=== PATIENT | female | born 1950 | race Caucasian/White ===

== ENCOUNTER 2018-06-29 16:21 | Observation (INO) ==
[2018-06-29] MEDS ORDERED: 0.9 % Sodium Chloride 1,000 ML IVC ONE (16:37)
[2018-06-29] MEDS ORDERED: methylPREDNISolone 125 MG/2 ML VIAL IVP ONE (16:37)
[2018-06-29] MEDS ORDERED: Ipratropium/Albuterol Neb 3 ML IH ONE (16:37)
--- NOTE | 2018-06-29 17:11 | Emergency Department Note ---
Disposition Clinical Impression: COPD with acute exacerbation, Bronchitis Dyspnea, unspecified Qualifiers: Dyspnea type: shortness of breath Qualified Code(s): R06.02 - Shortness of breath; R06.00 - Dyspnea, unspecified; R06.01 - Orthopnea Disposition: Admitted As Inpatient Condition: Fair Referrals: Sin Purcell CNP [Primary Care Provider] - Forms: ED Satisfaction Letter Time of Disposition: 18:36 SOB HPI - General Chief Complaint: ED Shortness of Breath/Dyspnea Stated Complaint: SHORTNESS OF BREATH, COUGH Time Seen by Provider: 06/29/18 16:31 Source: patient, EMS Mode of arrival: EMS Limitations: no limitations Nursing Notes Reviewed: Yes Vital Signs Reviewed: Yes - History of Present Illness Pt Subjective Complaint: shortness of breath, cough Onset (ago): week(s) (2 weeks.) Severity: severe Consistency/Duration: constant Improves with: rest Worsens with: exertion Known history of: COPD Associated symptoms: Reports: cough, wheezing, sputum production Treatment prior to arrival: bronchodilator Cough present: Yes Cough Description: Productive Cough Frequency: Persistent Sputum Amount: Moderate Sputum Color: Yellow - Related Data Home Medications Medication Instructions Recorded Confirmed Budesonide/Formoterol 160/4.5 2 puff IH BIDR 04/13/16 06/29/18 [Symbicort 160/4.5] Citalopram [CeleXA] 20 mg PO DAILY 04/13/16 06/29/18 Diltiazem HCl [Diltiazem 12Hr ER] 360 mg PO DAILY 04/13/16 06/29/18 Furosemide [Lasix] 40 mg PO BID 04/13/16 06/29/18 Levothyroxine [Synthroid] 50 mcg PO DAILY 04/13/16 06/29/18 Lisinopril [Zestril] 40 mg PO DAILY 04/13/16 06/29/18 Potassium Chloride [Klor-Con 10 meq PO BID 04/13/16 06/29/18 Sprinkle] Pravastatin Sodium [Pravachol] 40 mg PO DAILY 04/13/16 06/29/18 Metoprolol [Lopressor] 25 mg PO BID 04/23/16 06/29/18 Oxygen 2 l .ROUTE AD 04/24/16 06/29/18 Albuterol Sulfate [Ventolin Hfa] 2 puff IH Q4H PRN 06/29/18 06/29/18 Metformin HCl 500 mg PO BID 06/29/18 06/29/18 Previous Rx's Medication Instructions Recorded Aspirin 81 mg PO DAILY #30 tab.chew 04/26/16 Allergies Allergy/AdvReac Type Severity Reaction Status Date / Time rivaroxaban [From Xarelto] AdvReac Severe See Verified 06/29/18 18:30 Comments All systems ED: reviewed and negative except as stated. Constitutional: Denies: fever, chills ENT ED: Denies: ear pain, throat pain, congestion Cardiovascular: Reports: dyspnea on exertion, other (Patient has chronic lymphedema to her legs but denies any increase in swelling to her legs). Denies: chest pain, palpitations Respiratory: Reports: cough, dyspnea, wheezes Gastrointestinal: Denies: abdominal pain, vomiting, diarrhea Musculoskeletal: Denies: back pain Integumentary: Denies: rash Past Medical History - Past Medical History Attestation: Yes The following information was validated with the patient. Source: patient, old records reviewed, nursing notes reviewed Medical history: Reports: arthritis, atrial fibrillation, COPD, diabetes, hyperlipidemia, hypertension, other Surgical history: Reports: no surgical history Psychiatric history: Reports: anxiety, panic disorder ZOOKEEPER history: Reports: no ZOOKEEPER history - Social History Smoking Status: Current some day smoker Smokeless Tobacco Status: No Alcohol use: Reports: none Drug use: Reports: none Physical Exam - General Limitations: no limitations General appearance: alert, other (Tachypneic and coughing with some audible wheezing) - Head Head exam: atraumatic, normocephalic, normal inspection - Eye Eye exam: Present: normal appearance, PERRL, EOMI. Absent: scleral icterus, conjunctival injection - ENT ENT exam: normal exam, normal oropharynx, mucous membranes moist, TM's normal bilaterally, normal external ear exam - Neck Neck exam: Present: normal inspection, full ROM, trachea midline. Absent: meningismus - Chest Chest inspection: Present: normal inspection, symmetric chest wall rise. Absent: tenderness - Respiratory Respiratory exam: Present: wheezes (Diffuse, bilateral) - Cardiovascular Cardiovascular exam: Present: normal rhythm, tachycardia, normal heart sounds - Abdominal Exam Abdominal exam: Present: soft, Non-Tender, normal bowel sounds - Extremities Exam Extremities exam: Present: other (Chronic edematous changes. No pitting edema) - Neurological Exam Neurological exam: Present: alert, oriented X3 - Psychiatric Psychiatric exam: Present: normal affect, normal mood - Skin Skin exam: Present: warm, dry. Absent: rash Course Course Narrative: Patient presents with shortness of breath and a lot of wheezing. She has cough productive of yellow sputum. Progressively worsening over the past 2 weeks. Most likely a bronchitis or possibly pneumonia which is aggravating her COPD and generating the symptoms. Symptoms sound severe enough that she most likely is toward admission to the hospital. I ordered shortness of breath workup and ordered breathing treatments and steroids. Disposition will be based on diagnostic results and reevaluation. - Reevaluation(s) Reevaluation #1: Patient's chest x-ray shows haziness in the lung markings and there are some effusions there. However clinically she is coughing and producing yellow sputum and does not describe orthopnea and does not feel her legs or any more swollen than usual. Thus I do not think this represents an acute CHF but rather a bronchitis aggravating COPD. Symptoms are enough that she requires hospitalization. Hospitalist has accepted patient. Orders have been placed. Time: 18:35 - Consultations Consultation #1: Dr. Mcgrath, hospitalist - I discussed the case with the hospitalist. He is accepted the patient for admission to the hospital. Time: 18:20 Vital Signs Temperature 97.7 F 06/29/18 16:22 Pulse Rate 113 06/29/18 16:22 Respiratory Rate 22 06/29/18 16:22 Blood Pressure 129/77 06/29/18 16:22 O2 Sat by Pulse Oximetry 94 06/29/18 16:22 Temperature 97.7 F 06/29/18 16:22 Pulse Rate 108 06/29/18 17:46 Respiratory Rate 20 06/29/18 17:46 Blood Pressure 142/78 06/29/18 17:46 O2 Sat by Pulse Oximetry 98 06/29/18 17:46 Oxygen Delivery Oxygen Delivery Nasal Cannula Shortness of Breath/Dyspnea - Medical Records Medical records reviewed: Yes I reviewed the patient's medical records. - Lab Data Lab results reviewed: Yes I reviewed the patient's lab results. Result diagrams: 06/29/18 17:07 06/29/18 17:07 Lab Results 06/29/18 06/29/18 06/29/18 Range/Units 17:07 17:07 17:07 WBC 7.1 (4.3-11.1) K/mcL RBC 3.55 L (3.82-4.97) M/mcL Hgb 11.3 L (11.5-15.4) g/dL Hct 35.8 (35.3-44.9) % MCV 100.8 H (83.0-100.0) fL MCH 31.8 (28.0-33.3) pg MCHC 31.6 (31.6-35.5) g/dL RDW 17.3 H (11.5-14.5) % Plt Count 260 (140-400) K/mcL MPV 10.8 (9.4-12.4) fL Immature Gran % 0.3 (0-4) % Seg Neutrophils % 62.3 % Lymphocytes % 17.0 % Monocytes % 17.7 % Eosinophils % 2.0 % Basophils % 0.7 % Neutrophils # 4.4 (1.6-8.9) K/mcL Lymphocytes # 1.2 (0.6-4.6) K/mcL Monocytes # 1.3 (0.0-1.3) K/mcL Eosinophils # 0.1 (0.0-0.6) K/mcL Basophils # 0.1 (0.0-0.2) K/mcL Sodium 141 (136-145) mEq/L Potassium 4.4 (3.5-5.1) mEq/L Chloride 103 (98-107) mEq/L Carbon Dioxide 32 H (23-29) mEq/L BUN 19 (8-23) mg/dL Creatinine 0.82 (0.60-1.20) mg/dL Est GFR ( Amer) > 60 (> 60) Est GFR (Non-Af Amer) > 60 (> 60) BUN/Creatinine Ratio 23 (6-26) Glucose 134 H (70-105) mg/dL Calculated Osmolality 296 (280-300) Lactic Acid (0.5-2.2) mmol/L Calcium 9.7 (8.6-10.3) mg/dL Troponin I (< 0.04) ng/mL B-Natriuretic Peptide 585 H (Less than 100) pg/mL 06/29/18 06/29/18 Range/Units 17:07 17:07 WBC (4.3-11.1) K/mcL RBC (3.82-4.97) M/mcL Hgb (11.5-15.4) g/dL Hct (35.3-44.9) % MCV (83.0-100.0) fL MCH (28.0-33.3) pg MCHC (31.6-35.5) g/dL RDW (11.5-14.5) % Plt Count (140-400) K/mcL MPV (9.4-12.4) fL Immature Gran % (0-4) % Seg Neutrophils % % Lymphocytes % % Monocytes % % Eosinophils % % Basophils % % Neutrophils # (1.6-8.9) K/mcL Lymphocytes # (0.6-4.6) K/mcL Monocytes # (0.0-1.3) K/mcL Eosinophils # (0.0-0.6) K/mcL Basophils # (0.0-0.2) K/mcL Sodium (136-145) mEq/L Potassium (3.5-5.1) mEq/L Chloride (98-107) mEq/L Carbon Dioxide (23-29) mEq/L BUN (8-23) mg/dL Creatinine (0.60-1.20) mg/dL Est GFR ( Amer) (> 60) Est GFR (Non-Af Amer) (> 60) BUN/Creatinine Ratio (6-26) Glucose (70-105) mg/dL Calculated Osmolality (280-300) Lactic Acid 1.5 (0.5-2.2) mmol/L Calcium (8.6-10.3) mg/dL Troponin I < 0.03 (< 0.04) ng/mL B-Natriuretic Peptide (Less than 100) pg/mL - Radiology Data Radiology results reviewed: Yes I reviewed the patient's radiology results. - EKG Data EKG attestation: Yes I reviewed and interpreted this EKG. EKG results narrative: Twelve-lead EKG performed at 1630 3 PM. Ordered, reviewed and interpreted by ED physician shows atrial flutter at a rate of 99. Right axis deviation. Nonspeci fic intraventricular conduction defect that most likely represents a right bundle branch block. Poor R-wave progression across to precordium. No obvious acute ischemic changes. Most recent EKG was from 2016 and today's EKG has changes compared to that consistent with worsening of right bundle branch block. The atrial flutter was present back in 2016.
[2018-06-29 17:14] LABS: Basophils # 0.1 K/mcL (0.0-0.2); Basophils % 0.7 %; Eosinophils # 0.1 K/mcL (0.0-0.6); Hematocrit 35.8 % (35.3-44.9); Hemoglobin 11.3 g/dL (11.5-15.4); Immature Granulocytes % 0.3 % (0-4); Lymphocytes # 1.2 K/mcL (0.6-4.6); Mean Corpuscular HGB Conc 31.6 g/dL (31.6-35.5); Mean Corpuscular Hemoglobin 31.8 pg (28.0-33.3); Mean Corpuscular Volume 100.8 fL (83.0-100.0); Mean Platelet Volume 10.8 fL (9.4-12.4); Monocytes # 1.3 K/mcL (0.0-1.3); Monocytes % 17.7 %; Neutrophils # 4.4 K/mcL (1.6-8.9); Platelet Count 260 K/mcL (140-400); Red Blood Count 3.55 M/mcL (3.82-4.97); Red Cell Distribution Width 17.3 % (11.5-14.5); Segmented Neutrophils % 62.3 %
[2018-06-29] MEDS ORDERED: Azithromycin 500 MG in D5% in Water 250 ML IVPB ONE (17:25)
[2018-06-29 17:56] LABS: BUN/Creatinine Ratio 23 (6-26); Blood Urea Nitrogen 19 mg/dL (8-23); Calcium 9.7 mg/dL (8.6-10.3); Carbon Dioxide 32 mEq/L (23-29); Chloride 103 mEq/L (98-107); Glucose 134 mg/dL (70-105); Osmolality,Calculated 296 (280-300); Potassium 4.4 mEq/L (3.5-5.1); Sodium 141 mEq/L (136-145); eGFR For Non-African Americans > 60 (> 60)
[2018-06-29] MEDS ORDERED: Naloxone 0.4 MG/ML INJ IVP PRN (20:59)
[2018-06-29] MEDS ORDERED: MethylPREDNISolone 40 MG/ML VIAL IVP ONE (20:59)
[2018-06-29] MEDS: Ipratropium/Albuterol Neb 3 ML IH SCH (21:21)
[2018-06-29] MEDS: Budesonide/Formoterol 160/4.5 1 PUFF INH IH SCH (21:21)
[2018-06-29] MEDS: Furosemide 40 MG TABLET PO SCH (21:44)
[2018-06-29] MEDS: *HR* Metformin 500 MG TABLET PO SCH (21:44)
[2018-06-29] MEDS: 0.9 % Sodium Chloride 1,000 ML IVC SCH (21:44)
[2018-06-30] MEDS: Ipratropium/Albuterol Neb 3 ML IH SCH ×5 (00:29→19:06)
[2018-06-30] MEDS: Levothyroxine 25 MCG TABLET PO SCH (06:38)
[2018-06-30] MEDS: 0.9 % Sodium Chloride 1,000 ML IVC SCH (08:06)
[2018-06-30] MEDS: Aspirin 81 MG TAB.CHEW PO SCH (08:59)
[2018-06-30] MEDS: Lisinopril 20 MG TABLET PO SCH (08:59)
[2018-06-30] MEDS: *HR* Metformin 500 MG TABLET PO SCH ×2 (08:59→17:05)
[2018-06-30] MEDS: Furosemide 40 MG TABLET PO SCH (08:59)
[2018-06-30] MEDS: Diltiazem CD (24hr) 180 MG CAPSULE PO SCH (08:59)
[2018-06-30] MEDS: Budesonide/Formoterol 160/4.5 1 PUFF INH IH SCH ×2 (09:19→21:41)
--- NOTE | 2018-06-30 16:39 | Internal Med History&Physical ---
Date of Encounter: 06/30/18 Time of Encounter: 16:10 Assessment and Plan (1) Heart failure Current visit: Yes Status: Chronic She will be changed from Lasix to Bumex. Lisinopril and Lopressor will be continued. Imdur will be started. Qualifiers: Heart failure type: diastolic Heart failure chronicity: acute on chronic Qualified Code(s): I50.33 - Acute on chronic diastolic (congestive) heart failure (2) Microcytic anemia Current visit: Yes Status: Acute Anemia testing will be done in a.m. (3) DM type 2 (diabetes mellitus, type 2) Current visit: Yes Status: Chronic Check hemoglobin A1c in a.m. Continue metformin and do Accu-Cheks with SSI Qualifiers: Diabetes mellitus skilled nursing insulin use: without termite treater helper use Diabetes mellitus complication status: without complication Qualified Code(s): E11.9 - Type 2 diabetes mellitus without complications (4) Acute exacerbation of chronic obstructive airways disease Current visit: No Status: Acute Continue Symbicort. Zithromax and Rocephin have been started for possible pneumonia. These will be continued with lactobacillus. Duonebs have been ordered. (5) Hypothyroid Current visit: No Status: Chronic Check TSH in a.m. Qualifiers: Hypothyroidism type: unspecified Qualified Code(s): E03.9 - Hypothyroidism, unspecified (6) Atrial fibrillation Current visit: No Status: Chronic Continue aspirin for CVA prophylaxis. Continue Lopressor and Cardizem for rate control. Qualifiers: Atrial fibrillation type: paroxysmal Qualified Code(s): I48.0 - Paroxysmal atrial fibrillation Internal Medicine - H&P: HPI Chief complaint: Dyspnea Admitted From: Emergency Dept Plans for Post Hospital Care: Home History of present illness: Ms. Hoover is a 67 year old female who came to emergency room stating she had increased dyspnea for approximately 2 weeks. She had occasional cough productive of yellow thick mucus. She had one episode of vomiting. She denies fevers chills or diarrhea. She was evaluated in emergency room and felt to have acute bronchitis with possible exacerbation of heart failure. She was admitted to [facility] floor for ongoing care needs. She states she feels slightly improved at present time but still dyspneic. Cardiovascular history is significant for hypertension. She denies [place] DVT or pulmonary embolus. She has chronic atrial fibrillation and is on aspirin since she had significant bleeding with use of Xarelto in the past. She had echocardiogram 03/22/2016 which showed LVEF of 55-60%. The interventricular septum and posterior wall thickness measurements were 1.20 cm each. No significant valvular abnormality was seen. The estimate RVSP was elevated at 49 mmHg. She denies DVT or pulmonary embolus. Respiratory history is significant for having smoked since age 14 up to 2 packs per day. She had PFTs approximately 2013 and was told she had COPD. She wears oxygen at home 23/01. She has been diagnosed with BRADY and wears BiPAP at bedtime. Past Med Surg Social Fam HX - Past Medical History Medical history: arthritis, atrial fibrillation, COPD, diabetes, hyperlipidemia, hypertension, other Additional medical history: CHRONIC EDEMA LOWER EXTREMITIES Psychiatric history: anxiety, panic disorder - Past Surgical History Surgical History: no surgical history - Social History Smoking Status: Current some day smoker Smokeless Tobacco Status: No Alcohol use: none Drug use: none - Family History Brother Family Member Ethnicity: Non- Living Status: Hx Family Cardiac Disorders: Yes Father Adopted: No Living Status: Still Living Hx Family Cardiac Disorders: Yes Mother Living Status: Hx Family Cardiac Disorders: Yes Internal Medicine - H&P: Meds Budesonide/Formoterol 160/4.5 [Symbicort 160/4.5] 2 puff IH BIDR 04/13/16 [History] Citalopram [CeleXA] 20 mg PO DAILY 04/13/16 [History] Diltiazem HCl [Diltiazem 12Hr ER] 360 mg PO DAILY 04/13/16 [History] Furosemide [Lasix] 40 mg PO BID 04/13/16 [History] Levothyroxine [Synthroid] 50 mcg PO DAILY 04/13/16 [History] Lisinopril [Zestril] 40 mg PO DAILY 04/13/16 [History] Potassium Chloride [Klor-Con Sprinkle] 10 meq PO BID 04/13/16 [History] Pravastatin Sodium [Pravachol] 40 mg PO DAILY 04/13/16 [History] Metoprolol [Lopressor] 25 mg PO BID 04/23/16 [History] Oxygen 2 l .ROUTE AD 04/24/16 [History] Aspirin 81 mg PO DAILY #30 tab.chew 04/26/16 [Rx] Albuterol Sulfate [Ventolin Hfa] 2 puff IH Q4H PRN 06/29/18 [History] Metformin HCl 500 mg PO BID 06/29/18 [History] Allergy/AdvReac Type Severity Reaction Status Date / Time rivaroxaban [From Xarelto] AdvReac Severe See Verified 06/29/18 18:30 Comments All Systems PM: A 10-system review of systems was performed and is negative for pertinent findings except as documented above in the HPI. Review of systems: General: Her weight is increased from 133.81 kg at the April 2015 hospitalization to admission weight 156.489 kilograms at present. Cardiovascular: As per history of present illness Respiratory: As per history of present illness GI: She denies disorders of her liver gallbladder or exocrine pancreas : She denies hematuria dysuria or kidney stones Neurologic: She denies large distribution strokes or seizures Endocrine: She has been diagnosed with DM 2 several years ago. She has hyperlipidemia and hypothyroidism Hematology/oncology: She denies blood disorders cancers or anemia Psychiatric: She has anxiety but denies depression or other mental health issues Musk skeletal: She has DJD and had left wrist fracture in the past. She does not have known gout or osteoporosis. - Constitutional Vitals: Temp Pulse Resp BP Pulse Ox 97.8 F 90 18 100/56 93 06/30/18 11:38 06/30/18 11:38 06/30/18 13:00 06/30/18 11:38 06/30/18 13:00 Exam: Gen.: She is a well-developed elderly obese female lying in bed who appears dyspneic at rest HEENT: Head is atraumatic and normocephalic. Eyes: EOMI. There is no scleral icterus. Mouth: Mucosa is moist. Neck: Supple and nontender. There is no thyromegaly or adenopathy noted. Heart: Irregularly irregular without murmurs or gallops Lungs: She has diminished breath sounds diffusely. No wheezes or crackles are heard. Abdomen: She has a very large pannus. She has a umbilical hernia measuring 4-5 cm diameter which is reducible. No masses or guarding are noted. Extremity: She has significant nodularity of the skin of her legs from massive lymphedema. She has 2-3+ pitting edema of the dorsum of the feet and lower legs bilaterally. Dorsalis pedis and posterior tibial pulses are not palpable. Neurologic: Mental status: She is talkative and a good historian. Cranial nerves: Smile is symmetric. Forehead wrinkles bilaterally. Tongue protrudes midline. EOMI. Motor: There is no pronator drift. Cerebellar: Finger to nose is intact bilaterally. Skin: Warm and dry Internal Med - H&P Results - Labs CBC & Chem 7: 06/29/18 17:07 06/29/18 17:07 Labs: Short CBC 06/29/18 Range/Units 17:07 WBC 7.1 (4.3-11.1) K/mcL Hgb 11.3 L (11.5-15.4) g/dL Hct 35.8 (35.3-44.9) % Plt Count 260 (140-400) K/mcL Neutrophils # 4.4 (1.6-8.9) K/mcL BMP 06/29/18 17:07 Sodium 141 Potassium 4.4 Chloride 103 Carbon Dioxide 32 H BUN 19 Creatinine 0.82 Glucose 134 H Calcium 9.7 Cardiac Enzymes 06/29/18 Range/Units 17:07 Troponin I < 0.03 (< 0.04) ng/mL - Impressions ITS Impressions Chest X-Ray 06/29/18 16:36 IMPRESSION: Coarsening of the interstitial markings, likely interstitial pulmonary edema superimposed on chronic interstitial lung disease. Bilateral pleural effusions, right greater than left. D/ / Wale Menchaca MD / Wale Menchaca MD Interpreting Provider: Wale Menchaca MD
[2018-06-30] MEDS ORDERED: Ipratropium/Albuterol Neb 3 ML IH PRN (16:57)
[2018-06-30] MEDS: Bumetanide 1 MG TABLET PO SCH (17:06)
[2018-06-30] MEDS: Isosorbide MONOnitrate (24 HR) 60 MG TAB.ER.24H PO SCH (17:10)
[2018-06-30] MEDS: Azithromycin 500 MG in D5% in Water 250 ML IVPB SCH (18:07)
[2018-06-30] MEDS: Lactobacillus 1 EACH CAP.SPRINK PO SCH (20:52)
[2018-06-30] MEDS: cefTRIAXone 1,000 MG in Water for inj. (sterile) 20 ML 10 ML IVP SCH (20:53)
[2018-07-01] MEDS: Levothyroxine 25 MCG TABLET PO SCH (06:46)
[2018-07-01 06:58] LABS: Thyroid Stimulating Hormone 4.027 mcIU/mL (0.340-5.600)
[2018-07-01] MEDS: Aspirin 81 MG TAB.CHEW PO SCH (08:15)
[2018-07-01] MEDS: Diltiazem CD (24hr) 180 MG CAPSULE PO SCH (08:15)
[2018-07-01] MEDS: *HR* Metformin 500 MG TABLET PO SCH ×2 (08:15→17:27)
[2018-07-01] MEDS: Lactobacillus 1 EACH CAP.SPRINK PO SCH ×2 (08:16→20:18)
[2018-07-01] MEDS: Isosorbide MONOnitrate (24 HR) 60 MG TAB.ER.24H PO SCH (09:38)
[2018-07-01] MEDS: Bumetanide 1 MG TABLET PO SCH ×2 (09:38→17:26)
[2018-07-01] MEDS: Lisinopril 20 MG TABLET PO SCH (09:39)
[2018-07-01] MEDS: Budesonide/Formoterol 160/4.5 1 PUFF INH IH SCH ×2 (10:02→21:57)
[2018-07-01 10:29] LABS: Estimated Average Glucose 140 mg/dl; Hemoglobin A1C 6.5 %
[2018-07-01 10:32] LABS: Folate 12.3 ng/mL (3.0-16.0)
--- NOTE | 2018-07-01 10:44 | Internal Med Progress Note ---
Date of Encounter: 07/01/18 Time of Encounter: 10:35 - Assessment and plan (1) Heart failure Current Visit: Yes Status: Chronic Assessment and plan: July 01. Continue Bumex, lisinopril, Lopressor, and Imdur Qualifiers: Heart failure type: diastolic Heart failure chronicity: acute on chronic Qualified Code(s): I50.33 - Acute on chronic diastolic (congestive) heart failure (2) Macrocytic anemia Current Visit: Yes Status: Acute Assessment and plan: July 01. Anemia testing showed iron 16, transferrin saturation 3%, transferrin 3 and 44, ferritin 17, B12 761, and folate 12.3. Start ferrous sulfate with ascorbic acid in a.m. (3) DM type 2 (diabetes mellitus, type 2) Current Visit: Yes Status: Chronic Assessment and plan: July 01. Hemoglobin A1c satisfactory at 6.5%. Continue metformin and Accu- Cheks with SSI. Qualifiers: Diabetes mellitus penitentiary insulin use: without senior java web application developer use Diabetes mellitus complication status: without complication Qualified Code(s): E11.9 - Type 2 diabetes mellitus without complications (4) Acute exacerbation of chronic obstructive airways disease Current Visit: No Status: Acute Assessment and plan: July 01. Continue Symbicort and antibiotics/probiotics. (5) Hypothyroid Current Visit: No Status: Chronic Assessment and plan: July 01. TSH normal at 4.027. Qualifiers: Hypothyroidism type: unspecified Qualified Code(s): E03.9 - Hypothyroidism, unspecified (6) Atrial fibrillation Current Visit: No Status: Chronic Assessment and plan: July 01. Continue aspirin for CVA prophylaxis and Lopressor with Cardizem for rate control. Qualifiers: Atrial fibrillation type: paroxysmal Qualified Code(s): I48.0 - Paroxysmal atrial fibrillation - Subjective Interval history: July 01. She has no new complaints. She feels slightly improved but is still dyspneic. - Constitutional Vitals: Temp Pulse Resp BP Pulse Ox 98.2 F 65 16 102/54 94 07/01/18 08:17 07/01/18 08:17 07/01/18 10:02 07/01/18 08:17 07/01/18 10:02 Exam: She is resting comfortably in bed but appears slightly dyspneic at rest. Edema shows minimal change in her feet and lower legs. I reviewed her medications and lab results. Internal Medicine: Result - Labs CBC & Chem 7: 06/29/18 17:07 06/29/18 17:07 Consult Discharge Plan - Plan Referrals: Sin Purcell, DIRECTOR OF QUANTITATIVE RESEARCH [Primary Care Provider] - 1 week
[2018-07-01] MEDS: Azithromycin 500 MG in D5% in Water 250 ML IVPB SCH (17:25)
[2018-07-01] MEDS: cefTRIAXone 1,000 MG in Water for inj. (sterile) 20 ML 10 ML IVP SCH (20:16)
[2018-07-02 06:35] LABS: Basophils % 0.2 %; Eosinophils # 0.1 K/mcL (0.0-0.6); Hematocrit 33.4 % (35.3-44.9); Hemoglobin 10.3 g/dL (11.5-15.4); Immature Granulocytes % 0.4 % (0-4); Lymphocytes # 1.8 K/mcL (0.6-4.6); Lymphocytes % 17.9 %; Mean Corpuscular HGB Conc 30.8 g/dL (31.6-35.5); Mean Corpuscular Hemoglobin 31.6 pg (28.0-33.3); Mean Corpuscular Volume 102.5 fL (83.0-100.0); Mean Platelet Volume 10.5 fL (9.4-12.4); Monocytes # 1.3 K/mcL (0.0-1.3); Monocytes % 12.3 %; Neutrophils # 6.9 K/mcL (1.6-8.9); Platelet Count 241 K/mcL (140-400); Red Blood Count 3.26 M/mcL (3.82-4.97); Red Cell Distribution Width 17.3 % (11.5-14.5); Segmented Neutrophils % 68.2 %
[2018-07-02] MEDS: Levothyroxine 25 MCG TABLET PO SCH (06:50)
[2018-07-02 06:55] LABS: BUN/Creatinine Ratio 32 (6-26); Blood Urea Nitrogen 34 mg/dL (8-23); Calcium 9.5 mg/dL (8.6-10.3); Carbon Dioxide 31 mEq/L (23-29); Chloride 104 mEq/L (98-107); Glucose 109 mg/dL (70-105); Magnesium 1.9 mg/dL (1.6-2.6); Osmolality,Calculated 300 (280-300); Potassium 4.4 mEq/L (3.5-5.1); Sodium 141 mEq/L (136-145); eGFR For Non-African Americans 51 (> 60)
[2018-07-02 07:25] VITALS: BP 114/72
[2018-07-02] MEDS: Aspirin 81 MG TAB.CHEW PO SCH (09:13)
[2018-07-02] MEDS: Diltiazem CD (24hr) 180 MG CAPSULE PO SCH (09:13)
[2018-07-02] MEDS: Lactobacillus 1 EACH CAP.SPRINK PO SCH (09:13)
[2018-07-02] MEDS: Isosorbide MONOnitrate (24 HR) 60 MG TAB.ER.24H PO SCH (09:13)
[2018-07-02] MEDS: *HR* Metformin 500 MG TABLET PO SCH (09:14)
[2018-07-02] MEDS: Bumetanide 1 MG TABLET PO SCH (09:14)
[2018-07-02] MEDS: Lisinopril 20 MG TABLET PO SCH (09:18)
[2018-07-02] MEDS: Budesonide/Formoterol 160/4.5 1 PUFF INH IH SCH (09:20)
--- NOTE | 2018-07-02 10:10 | Discharge Summary ---
Orders not resulted at time of discharge: Pending orders 06/29/18 17:07 Culture,Blood [] Stat Date of Encounter: 07/02/18 Time of Encounter: 09:56 - Discharge Diagnosis (1) Heart failure Priority: Primary Status: Chronic Qualifiers: Heart failure type: diastolic Heart failure chronicity: acute on chronic Qualified Code(s): I50.33 - Acute on chronic diastolic (congestive) heart failure (2) Macrocytic anemia Priority: Secondary Status: Acute (3) DM type 2 (diabetes mellitus, type 2) Priority: Secondary Status: Chronic Qualifiers: Diabetes mellitus shelter insulin use: without shelter use Diabetes mellitus complication status: without complication Qualified Code(s): E11.9 - Type 2 diabetes mellitus without complications (4) Acute exacerbation of chronic obstructive airways disease Priority: Secondary Status: Acute (5) Hypothyroid Priority: Secondary Status: Chronic Qualifiers: Hypothyroidism type: unspecified Qualified Code(s): E03.9 - Hypothyroidism, unspecified (6) Atrial fibrillation Priority: Secondary Status: Chronic Qualifiers: Atrial fibrillation type: paroxysmal Qualified Code(s): I48.0 - Paroxysmal atrial fibrillation Hospital course: Ms. Hoover is a 67 year old female who came to emergency room stating she had increased dyspnea for approximately 2 weeks. She had occasional cough productive of yellow thick mucus. She had one episode of vomiting. She denies fevers chills or diarrhea. She was evaluated in emergency room and felt to have acute bronchitis with possible exacerbation of heart failure. She was admitted to [facility] floor for ongoing care needs. Initial orders were written by the emergency room physician. I saw her on June 30 and performed a history and physical. She was started on IV Rocephin and Zithromax in emergency room for possible bronchitis. She remained afebrile. Initial and follow-up CBC showed no leukocytosis or left shift. She will not continue with antibiotics at discharge. She was treated for heart failure continuation of Lisinopril and Lopressor. Lasix was changed to Bumex. Imdur was added. She will be given Lanoxin at discharge also. Her PCP can monitor. Anemia testing showed iron 16, transferrin saturation 3%, transferrin 3 and 44, ferritin 17, B12 761, and folate 12.3. She will be started on ferrous sulfate with vitamin C at discharge. On July 02 she felt improved and stable for discharge home. She will follow with her PCP GERMÁN Purcell within 1 week. - Time Spent with Patient Total time spent providing and/or coordinating discharge services: - Discharge Medications Prescriptions: Ascorbic Acid [C-500] 500 mg PO DAILY #30 tablet Bumetanide [Bumex] 2 mg PO BIDDIURETIC #120 tablet Digoxin [Lanoxin] 0.125 mg PO DAILY #30 tablet Ferrous Sulfate 325 mg PO DAILY #30 tablet Isosorbide MONOnitrate (24 HR) [Imdur] 60 mg PO DAILY #30 tab.er.24h Home Medications: Budesonide/Formoterol 160/4.5 [Symbicort 160/4.5] 2 puff IH BIDR 04/13/16 [History] Citalopram [CeleXA] 20 mg PO DAILY 04/13/16 [History] Diltiazem HCl [Diltiazem 12Hr ER] 360 mg PO DAILY 04/13/16 [History] Levothyroxine [Synthroid] 50 mcg PO DAILY 04/13/16 [History] Lisinopril [Zestril] 40 mg PO DAILY 04/13/16 [History] Potassium Chloride [Klor-Con Sprinkle] 10 meq PO BID 04/13/16 [History] Pravastatin Sodium [Pravachol] 40 mg PO DAILY 04/13/16 [History] Metoprolol [Lopressor] 25 mg PO BID 04/23/16 [History] Oxygen 2 l .ROUTE AD 04/24/16 [History] Aspirin 81 mg PO DAILY #30 tab.chew 04/26/16 [Rx] Albuterol Sulfate [Ventolin Hfa] 2 puff IH Q4H PRN 06/29/18 [History] Metformin HCl 500 mg PO BID 06/29/18 [History] Ascorbic Acid [C-500] 500 mg PO DAILY #30 tablet 07/02/18 [Rx] Bumetanide [Bumex] 2 mg PO BIDDIURETIC #120 tablet 07/02/18 [Rx] Digoxin [Lanoxin] 0.125 mg PO DAILY #30 tablet 07/02/18 [Rx] Ferrous Sulfate 325 mg PO DAILY #30 tablet 07/02/18 [Rx] Isosorbide MONOnitrate (24 HR) [Imdur] 60 mg PO DAILY #30 tab.er.24h 07/02/18 [Rx] Allergies/Adverse Reactions: Allergy/AdvReac Type Severity Reaction Status Date / Time rivaroxaban [From Xarelto] AdvReac Severe See Verified 06/29/18 18:30 Comments Date of admission: 06/29/18 18:58 Primary care physician: Sin Purcell CNP - Constitutional Vitals: Temp Pulse Resp BP Pulse Ox 98.2 F 86 16 114/72 94 07/02/18 07:00 07/02/18 07:00 07/02/18 09:20 07/02/18 07:00 07/02/18 09:20 - Patient Status Disposition: Home, Self-Care Condition: Fair - Discharge Instructions Follow Up With: Sin Purcell, MARK [Primary Care Provider] - 1 week - Diet and Activity Activity: wear oxygen at all times Diet: diabetic diet
--- NOTE | 2018-07-03 15:12 | Electrocardiograph Report ---
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
== END 2018-07-02 12:19 | disposition home or self-care (01) ==
LOC: EMEROOPIK 16:21 → INPPIK 16:21
PROVIDERS: ADMIT Internal Medicine; ATTEND Internal Medicine

== ENCOUNTER 2018-07-19 13:08 | Observation (INO) ==
--- NOTE | 2018-07-19 13:15 | Emergency Department Note ---
Disposition Clinical Impression: COPD (chronic obstructive pulmonary disease), Elevated troponin Disposition: Admitted As Inpatient Condition: Good Referrals: Sin Purcell, KENNEL MANAGER DOG [facility]ACK [Primary Care Provider] - Pediatric SOB HPI - General Chief Complaint: ED Shortness of Breath/Dyspnea Stated Complaint: "I cant breathe" Time Seen by Provider: 07/19/18 13:10 Source: patient Mode of arrival: EMS Limitations: no limitations Nursing Notes Reviewed: Yes Vital Signs Reviewed: Yes - History of Present Illness HPI Narrative: Patient complains of shortness of breath started today. She has been battling off and on since the fourth and has been in the hospital once since then. She is coughing up thick phlegm. Coughing up more phlegm than normal. She is unsure if she lost or gained any weight because she has no scales at home. She denies any fevers or chills chest pain belly pain diarrhea rashes or other complaints. 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: constant Severity: moderate Associated symptoms: Reports: cough Improves with: nothing Worsens with: nothing - Related Data Home Medications Medication Instructions Recorded Confirmed Budesonide/Formoterol 160/4.5 2 puff IH BIDR 04/13/16 06/29/18 [Symbicort 160/4.5] Citalopram [CeleXA] 20 mg PO DAILY 04/13/16 06/29/18 Diltiazem HCl [Diltiazem 12Hr ER] 360 mg PO DAILY 04/13/16 06/29/18 Levothyroxine [Synthroid] 50 mcg PO DAILY 04/13/16 06/29/18 Lisinopril [Zestril] 40 mg PO DAILY 04/13/16 06/29/18 Potassium Chloride [Klor-Con 10 meq PO BID 04/13/16 06/29/18 Sprinkle] Pravastatin Sodium [Pravachol] 40 mg PO DAILY 04/13/16 06/29/18 Metoprolol [Lopressor] 25 mg PO BID 04/23/16 06/29/18 Oxygen 2 l .ROUTE AD 04/24/16 06/29/18 Albuterol Sulfate [Ventolin Hfa] 2 puff IH Q4H PRN 06/29/18 06/29/18 Metformin HCl 500 mg PO BID 06/29/18 06/29/18 Previous Rx's Medication Instructions Recorded Aspirin 81 mg PO DAILY #30 tab.chew 04/26/16 Ascorbic Acid [C-500] 500 mg PO DAILY #30 tablet 07/02/18 Bumetanide [Bumex] 2 mg PO BIDDIURETIC #120 tablet 07/02/18 Digoxin [Lanoxin] 0.125 mg PO DAILY #30 tablet 07/02/18 Ferrous Sulfate 325 mg PO DAILY #30 tablet 07/02/18 Isosorbide MONOnitrate (24 HR) 60 mg PO DAILY #30 tab.er.24h 07/02/18 [Imdur] Allergies Allergy/AdvReac Type Severity Reaction Status Date / Time rivaroxaban [From Xarelto] AdvReac Severe See Verified 06/29/18 18:30 Comments Pediatric Review of Systems All systems ED: reviewed and negative except as stated. Limitations: ROS unobtainable due to patients medical condition Constitutional: Denies: fever, chills, change in activity level Eyes: Denies: eye pain, eye discharge ENT: Denies: ear pain, sore throat Cardiovascular: Denies: chest pain Respiratory: Reports: as per HPI, cough, dyspnea Gastrointestinal: Denies: abdominal pain Genitourinary: Denies: dysuria, polyuria Musculoskeletal: Denies: back pain Integumentary: Denies: rash Neurological: Denies: headache, weakness, numbness Psychiatric: Denies: change in energy level Endocrine: Denies: fatigue Hematological/Lymphatic: Denies: easy bruising Allergic/Immunologic: Denies: facial swelling, urticaria Pediatric Past Medical History - Past Medical History Source: patient Pediatric Exam - General Limitations: no limitations General appearance: well-appearing, well-hydrated, active, well-nourished - Head Head exam: normocephalic, atruamatic, normal inspection - Eye Eye exam: Present: normal appearance, PERRL, EOMI - ENT ENT exam: normal exam, normal oropharynx, mucous membranes moist - Neck Neck exam: Present: normal inspection, full ROM - Chest Chest inspection: Present: normal inspection, symmetric chest wall rise - Respiratory Respiratory exam: Present: prolonged expiratory phase - Cardiovascular Cardiovascular exam: Present: regular rate, normal rhythm - Abdominal Exam Abdominal exam: Present: soft, Non-Tender, normal bowel sounds - Extremities Exam Extremities exam: Present: pedal edema (Chronic edema to lower extremities bilaterally) - Back Exam Back exam: Present: normal inspection - Neurological Exam Neurological exam: Present: alert, oriented X3 - Skin Skin exam: Present: warm, dry, intact - Expanded Skin Exam Type of lesion: Absent: rash Distribution: generalized Medical Decision Making - [facility] Narrative Medical decision making narrative: I reviewed the patient's medication list Patient received 125 mg of Solu-Medrol by squad on the way in as well as an albuterol treatment Case was discussed with Dr. Mcgrath who is graciously accepted admission.
[2018-07-19 13:55] LABS: Hematocrit 38.9 % (35.3-44.9); Hemoglobin 12.2 g/dL (11.5-15.4); Mean Corpuscular HGB Conc 31.4 g/dL (31.6-35.5); Mean Corpuscular Hemoglobin 31.9 pg (28.0-33.3); Mean Corpuscular Volume 101.8 fL (83.0-100.0); Platelet Count 240 K/mcL (140-400); Red Blood Count 3.82 M/mcL (3.82-4.97); Red Cell Distribution Width 18.2 % (11.5-14.5)
[2018-07-19] MEDS ORDERED: Ipratropium/Albuterol Neb 3 ML IH ONE (14:04)
[2018-07-19 14:29] LABS: Alanine Aminotransferase 8 Units/L (7-52); Albumin 3.5 g/dL (3.5-5.7); Albumin/Globulin Ratio 0.9 (1.1-2.2); Alkaline Phosphatase 79 Units/L (34-104); Aspartate Amino Transferase 13 Units/L (13-39); BUN/Creatinine Ratio 18 (6-26); Bilirubin,Total 1.3 mg/dL (0.3-1.0); Blood Urea Nitrogen 14 mg/dL (8-23); Carbon Dioxide 39 mEq/L (23-29); Chloride 93 mEq/L (98-107); Glucose 112 mg/dL (70-105); Osmolality,Calculated 289 (280-300); Potassium 4.1 mEq/L (3.5-5.1); Sodium 139 mEq/L (136-145); Total Protein 7.5 g/dL (6.4-8.9); eGFR For Non-African Americans > 60 (> 60)
[2018-07-19 14:39] LABS: Bilirubin,Urine Negative (Negative); Blood,Urine Trace-lysed (Negative); Clarity,Urine Slightly Cloudy (Clear); Color,Urine Yellow (Yellow); Glucose,Urine (UA) Normal (Normal); Ketones,Urine Negative (Negative); Leukocyte Esterase,Urine Moderate (Negative); Nitrite,Urine Negative (Negative); Protein,Urine Negative (Neg-Trace); Urobilinogen,Urine Normal (Normal)
[2018-07-19 14:40] LABS: Troponin I 0.04 ng/mL (< 0.04)
[2018-07-19 14:53] LABS: Amorphous Sediment,Urine Few (Few); Bacteria,Urine Moderate per hpf (None-Few); Hyaline Casts,Urine Few per lpf (None-Few); Mucus,Urine Many (Few); Squamous Epithelial Cell,Urine Few per lpf (None-Few)
[2018-07-19] MEDS ORDERED: Aspirin 81 MG TAB.CHEW PO STA (14:59)
--- NOTE | 2018-07-19 15:46 | Electrocardiograph Report ---
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
[2018-07-19] MEDS ORDERED: NON-FORMULARY MEDICATION 1 EACH EACH (Oxygen [Oxygen] 2 L) SCH (16:10)
[2018-07-19] MEDS ORDERED: Naloxone 0.4 MG/ML INJ IVP PRN (16:10)
--- NOTE | 2018-07-19 17:34 | Internal Med History&Physical ---
Date of Encounter: 07/19/18 Time of Encounter: 17:10 Assessment and Plan (1) COPD (chronic obstructive pulmonary disease) Current visit: Yes Status: Acute Chest CT will be done to further evaluate. Continue nebulizers and oxygen. Qualifiers: COPD type: unspecified COPD Qualified Code(s): J44.9 - Chronic obstructive pulmonary disease, unspecified (2) Macrocytosis without anemia Current visit: No Status: Chronic Chronic macrocytosis with workup June 2018 unremarkable. (3) Hypertension Current visit: No Status: Chronic Continue Lopressor diltiazem and lisinopril. Qualifiers: Hypertension type: essential hypertension Qualified Code(s): I10 - Essential (primary) hypertension (4) Hypothyroid Current visit: No Status: Chronic TSH was normal 07/01/2018. Continue present dose Synthroid. Qualifiers: Hypothyroidism type: unspecified Qualified Code(s): E03.9 - Hypothyroidism, unspecified (5) Atrial fibrillation Current visit: No Status: Chronic Continue aspirin for CVA prophylaxis and Cardizem with metoprolol and Lanoxin for rate control. Qualifiers: Atrial fibrillation type: paroxysmal Qualified Code(s): I48.0 - Paroxysmal atrial fibrillation (6) DM type 2 (diabetes mellitus, type 2) Current visit: No Status: Chronic Hemoglobin A1c was 6.5% on 07/01/2018. Continue metformin and Accu-Cheks with SSI. 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 (8) Heart failure Current visit: No Status: Chronic Echocardiogram will be done to further evaluate. Qualifiers: Heart failure type: diastolic Heart failure chronicity: acute on chronic Qualified Code(s): I50.33 - Acute on chronic diastolic (congestive) heart failure Internal Medicine - H&P: HPI Chief complaint: Dyspnea Admitted From: Emergency Dept Plans for Post Hospital Care: Home History of present illness: Ms. Hoover is a 67 year old female who came to emergency room complaining of increased dyspnea onset earlier today. There was no chest pain associated. She reports oxygen saturation decreased to 60s percent transferring from bed to bedside commode. She reports she has had a cough productive of yellow-brown sputum for approximately one week. She was evaluated emergency room was felt to have exacerbation of COPD. She was admitted to [facility] floor for ongoing care needs. She was hospitalized [facility] June 30- with diagnosis of heart failure. Cardiovascular history is significant for hypertension. She denies AL DVT or pulmonary embolus. She has chronic atrial fibrillation and is on aspirin since she had significant bleeding with use of Xarelto in the past. She had echocardiogram 03/22/2016 which showed LVEF of 55-60%. The interventricular septum and posterior wall thickness measurements were 1.20 cm each. No significant valvular abnormality was seen. The estimated RVSP was elevated at 49 mmHg. She denies DVT or pulmonary embolus. Respiratory history is significant for having smoked since age 14 up to 2 packs per day. She states she has not smoked since discharge 07/02/2018. She had PFTs approximately 2013 and was told she had COPD. She wears oxygen at home 23/01. She has been diagnosed with BRADY and has been prescribed BiPAP for bedtime use but states she has not worn it in over 2 weeks because of poor tolerance. Past Med Surg Social Fam HX - Past Medical History Medical history: arthritis, atrial fibrillation, CHF, COPD, diabetes, hyperlipidemia, hypertension, other Additional medical history: CHRONIC EDEMA LOWER EXTREMITIES Psychiatric history: anxiety, panic disorder - Past Surgical History Surgical History: no surgical history - Social History Smoking Status: Former smoker Smokeless Tobacco Status: No Alcohol use: none Drug use: none - Family History Brother Family Member Ethnicity: Non- Living Status: Hx Family Cardiac Disorders: Yes Father Adopted: No Living Status: Still Living Hx Family Cardiac Disorders: Yes Mother Living Status: Hx Family Cardiac Disorders: Yes Internal Medicine - H&P: Meds Budesonide/Formoterol 160/4.5 [Symbicort 160/4.5] 2 puff IH BIDR 04/13/16 [History] Citalopram [CeleXA] 20 mg PO DAILY 04/13/16 [History] Diltiazem HCl [Diltiazem 12Hr ER] 360 mg PO DAILY 04/13/16 [History] Levothyroxine [Synthroid] 50 mcg PO DAILY 04/13/16 [History] Lisinopril [Zestril] 40 mg PO DAILY 04/13/16 [History] Potassium Chloride [Klor-Con Sprinkle] 10 meq PO BID 04/13/16 [History] Pravastatin Sodium [Pravachol] 40 mg PO DAILY 04/13/16 [History] Metoprolol [Lopressor] 25 mg PO BID 04/23/16 [History] Oxygen 2 l .ROUTE AD 04/24/16 [History] Aspirin 81 mg PO DAILY #30 tab.chew 04/26/16 [Rx] Albuterol Sulfate [Ventolin Hfa] 2 puff IH Q4H PRN 06/29/18 [History] Metformin HCl 500 mg PO BID 06/29/18 [History] Ascorbic Acid [C-500] 500 mg PO DAILY #30 tablet 07/02/18 [Rx] Bumetanide [Bumex] 2 mg PO BIDDIURETIC #120 tablet 07/02/18 [Rx] Digoxin [Lanoxin] 0.125 mg PO DAILY #30 tablet 07/02/18 [Rx] Ferrous Sulfate 325 mg PO DAILY #30 tablet 07/02/18 [Rx] Isosorbide MONOnitrate (24 HR) [Imdur] 60 mg PO DAILY #30 tab.er.24h 07/02/18 [Rx] Allergy/AdvReac Type Severity Reaction Status Date / Time rivaroxaban [From Xarelto] AdvReac Severe See Verified 06/29/18 18:30 Comments All Systems PM: A 10-system review of systems was performed and is negative for pertinent findings except as documented above in the HPI. Review of systems: Review of systems from her June 2018 [facility] hospitalization were reviewed and revised as below. General: Her weight is increased from 133.81 kg at the April 2015 hospitalization to admission weight 156.489 kilograms at present. Cardiovascular: As per history of present illness Respiratory: As per history of present illness GI: She denies disorders of her liver gallbladder or exocrine pancreas : She denies hematuria dysuria or kidney stones Neurologic: She denies large distribution strokes or seizures Endocrine: She has been diagnosed with DM 2 approximately 2007. She has hyperlipidemia and hypothyroidism Hematology/oncology: She denies blood disorders cancers or anemia Psychiatric: She has anxiety but denies depression or other mental health issues Musk skeletal: She has DJD and had left wrist fracture in the past. She does not have known gout or osteoporosis. - Constitutional Vitals: Temp Pulse Resp BP Pulse Ox 99.8 F H 57 86 133/53 4 07/19/18 13:09 07/19/18 15:26 07/19/18 15:26 07/19/18 15:26 07/19/18 15:26 Exam: Gen.: She is a well-developed morbidly obese female lying in bed who appears in no acute distress. HEENT: Head is atraumatic and normocephalic. Eyes: EOMI. There is no scleral icterus. Nose: She is wearing oxygen mask. Mouth: Mucosa is moist. Neck: Supple and nontender. There is no thyromegaly or adenopathy noted. Heart: Irregularly irregular without murmurs or gallops Lungs: No wheezes or crackles are heard. She has egophony in the right posterior upper lung field. Abdomen: She has a large abdomen. It is nontender to palpation. Extremities: She has severe lymphedema with dermal thickening and nodularity. She has 2+ pitting edema of the dorsum of the feet bilaterally. She has woody edema of her lower legs. Dorsalis pedis and posttibial pulses are not palpable. Neurologic: Mental status: She is talkative and a good historian. Cranial nerves: Smile is symmetric. Forehead wrinkles bilaterally. Tongue protrudes midline. EOMI. Motor: There is no pronator drift. Cerebellar: Finger to nose is intact bilaterally. Skin: Warm and dry Internal Med - H&P Results - Labs CBC & Chem 7: 07/19/18 13:34 07/19/18 13:34 Labs: Short CBC 07/19/18 Range/Units 13:34 WBC 7.7 (4.3-11.1) K/mcL Hgb 12.2 (11.5-15.4) g/dL Hct 38.9 (35.3-44.9) % Plt Count 240 (140-400) K/mcL BMP 07/19/18 13:34 Sodium 139 Potassium 4.1 Chloride 93 L Carbon Dioxide 39 H BUN 14 Creatinine 0.78 Glucose 112 H Calcium 10.0 Cardiac Enzymes 07/19/18 Range/Units 13:34 Troponin I 0.04 H* (< 0.04) ng/mL Liver Function 07/19/18 Range/Units 13:34 Total Bilirubin 1.3 H (0.3-1.0) mg/dL AST 13 (13-39) Units/L ALT 8 (7-52) Units/L Alkaline Phosphatase 79 (34-104) Units/L Albumin 3.5 (3.5-5.7) g/dL Urine 07/19/18 Range/Units 14:34 Urine Color Yellow (Yellow) Urine Clarity Slightly Cloudy A (Clear) Urine pH 5.0 (5.0-8.0) pH Units Ur Specific [place] 1.020 (1.010-1.025) Urine Protein Negative (Neg-Trace) mg/dL Urine Glucose (UA) Normal (Normal) mg/dL - Impressions ITS Impressions Chest X-Ray 07/19/18 13:20 IMPRESSION: 1. No acute cardiopulmonary disease. 2. Chronic interstitial changes due to emphysema. D/ / Alexsander Christopher MD / Alexsander Christopher MD Interpreting Provider: Alexsander Christopher MD
[2018-07-19] MEDS: Bumetanide 1 MG TABLET PO SCH (17:53)
[2018-07-19] MEDS: *HR* Metformin 500 MG TABLET PO SCH (17:54)
[2018-07-19] MEDS ORDERED: Albuterol 2.5 MG/3 ML NEBULIZER IH PRN (18:53)
[2018-07-19] MEDS: Budesonide/Formoterol 160/4.5 1 PUFF INH IH SCH (21:38)
[2018-07-20] MEDS ORDERED: Levothyroxine 25 MCG TABLET PO SCH (06:30)
[2018-07-20] MEDS: Bumetanide 1 MG TABLET PO SCH (07:32)
[2018-07-20 07:33] LABS: Basophils % 0.2 %; Hematocrit 37.4 % (35.3-44.9); Hemoglobin 11.5 g/dL (11.5-15.4); Immature Granulocytes % 0.5 % (0-4); Lymphocytes # 0.5 K/mcL (0.6-4.6); Lymphocytes % 9.2 %; Mean Corpuscular HGB Conc 30.7 g/dL (31.6-35.5); Mean Corpuscular Hemoglobin 31.6 pg (28.0-33.3); Mean Corpuscular Volume 102.7 fL (83.0-100.0); Mean Platelet Volume 10.3 fL (9.4-12.4); Monocytes # 0.5 K/mcL (0.0-1.3); Monocytes % 7.7 %; Neutrophils # 4.8 K/mcL (1.6-8.9); Platelet Count 235 K/mcL (140-400); Red Blood Count 3.64 M/mcL (3.82-4.97); Red Cell Distribution Width 18.2 % (11.5-14.5); Segmented Neutrophils % 82.4 %
[2018-07-20] MEDS: *HR* Metformin 500 MG TABLET PO SCH (07:33)
[2018-07-20 07:50] LABS: BUN/Creatinine Ratio 20 (6-26); Blood Urea Nitrogen 21 mg/dL (8-23); Calcium 9.8 mg/dL (8.6-10.3); Carbon Dioxide 43 mEq/L (23-29); Chloride 92 mEq/L (98-107); Glucose 145 mg/dL (70-105); Magnesium 1.7 mg/dL (1.6-2.6); Osmolality,Calculated 292 (280-300); Potassium 4.7 mEq/L (3.5-5.1); Sodium 138 mEq/L (136-145); eGFR For Non-African Americans 51 (> 60)
[2018-07-20] MEDS: Budesonide/Formoterol 160/4.5 1 PUFF INH IH SCH (08:57)
[2018-07-20] MEDS ORDERED: Isosorbide MONOnitrate (24 HR) 60 MG TAB.ER.24H PO SCH (09:00)
[2018-07-20] MEDS ORDERED: Ascorbic Acid 500 MG TABLET PO SCH (09:00)
[2018-07-20] MEDS ORDERED: *HR* Digoxin 0.125 MG TABLET PO SCH (09:00)
[2018-07-20] MEDS ORDERED: Lisinopril 20 MG TABLET PO SCH (09:00)
[2018-07-20] MEDS ORDERED: Aspirin 81 MG TAB.CHEW PO SCH (09:00)
[2018-07-20] MEDS ORDERED: Diltiazem CD (24hr) 180 MG CAPSULE PO SCH (09:00)
[2018-07-20 10:57] VITALS: BP 102/49
--- NOTE | 2018-07-20 11:12 | Discharge Summary ---
Orders not resulted at time of discharge: Pending orders 07/19/18 14:00 Culture,Blood [BC] Stat 07/19/18 14:34 Culture,Urine [RM] Stat Date of Encounter: 07/20/18 Time of Encounter: 11:00 - Discharge Diagnosis (1) Community acquired pneumonia Priority: Primary Status: Acute Qualifiers: Laterality: right Lung location: upper lobe of lung Qualified Code(s): J18.1 - Lobar pneumonia, unspecified organism (2) Pulmonary collapse Priority: Secondary Status: Acute Comments: Right middle lobe collapse (3) COPD (chronic obstructive pulmonary disease) Priority: Secondary Status: Chronic Qualifiers: COPD type: unspecified COPD Qualified Code(s): J44.9 - Chronic obstructive pulmonary disease, unspecified (4) Macrocytosis without anemia Priority: Secondary Status: Chronic (5) Hypertension Priority: Secondary Status: Chronic Qualifiers: Hypertension type: essential hypertension Qualified Code(s): I10 - Essential (primary) hypertension (6) Hypothyroid Priority: Secondary Status: Chronic Qualifiers: Hypothyroidism type: unspecified Qualified Code(s): E03.9 - Hypothyroidism, unspecified (7) Atrial fibrillation Priority: Secondary Status: Chronic Qualifiers: Atrial fibrillation type: paroxysmal Qualified Code(s): I48.0 - Paroxysmal atrial fibrillation (8) DM type 2 (diabetes mellitus, type 2) Priority: Secondary Status: Chronic Qualifiers: 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 Hoover is a 67 year old female who came to emergency room complaining of increased dyspnea onset earlier the day of admission. There was no chest pain associated. She reports oxygen saturation decreased to 60s percent transferring from bed to bedside commode. She reports she has had a cough productive of yellow-brown sputum for approximately one week. She was evaluated in emergency room was felt to have exacerbation of COPD. She was admitted to [facility] for ongoing care needs. Initial orders were written by the emergency room physician. I saw her on July 19 and performed the history and physical. Chest CT was done to further evaluate. The CT scan showed complete collapse of the right middle lobe. Further evaluation was recommended with bronchoscopy. There was right upper lo be airspace disease concerning for pneumonia. Mediastinal adenopathy was noted and was felt to likely be reactive. She was started on IV Rocephin and Zithromax. Echocardiogram showed LVEF 55%. There was indeterminate diastolic function assessment due to atrial fibrillation. LAE was seen at 4.20 cm. There was reported BHUPENDRA without measurements recorded. There was mild mitral regurgitation and mild tricuspid regurgitation. Estimated RVSP was elevated at 64 74 mmHg. Serial troponins remained 0.040.05. I felt this was likely reflective of demand ischemia. Follow-up labs on July 20 showed BUN and creatinine rising to 21 and 1.07 respectively with estimated GFR 51. On July 20 I discussed with patient and family the results of the chest CT showing right middle lobe collapse. I explained she needed bronchoscopy to further evaluate. She agreed to be transferred to [facility] for ongoing care needs. - Time Spent with Patient Total time spent providing and/or coordinating discharge services: - Discharge Medications Home Medications: Budesonide/Formoterol 160/4.5 [Symbicort 160/4.5] 2 puff IH BIDR 04/13/16 [History] Citalopram [CeleXA] 20 mg PO DAILY 04/13/16 [History] Diltiazem HCl [Diltiazem 12Hr ER] 360 mg PO DAILY 04/13/16 [History] Levothyroxine [Synthroid] 50 mcg PO DAILY 04/13/16 [History] Lisinopril [Zestril] 40 mg PO DAILY 04/13/16 [History] Potassium Chloride [Klor-Con Sprinkle] 10 meq PO BID 04/13/16 [History] Pravastatin Sodium [Pravachol] 40 mg PO DAILY 04/13/16 [History] Metoprolol [Lopressor] 25 mg PO BID 04/23/16 [History] Oxygen 2 l .ROUTE AD 04/24/16 [History] Aspirin 81 mg PO DAILY #30 tab.chew 04/26/16 [Rx] Albuterol Sulfate [Ventolin Hfa] 2 puff IH Q4H PRN 06/29/18 [History] Metformin HCl 500 mg PO BID 06/29/18 [History] Ascorbic Acid [C-500] 500 mg PO DAILY #30 tablet 07/02/18 [Rx] Bumetanide [Bumex] 2 mg PO BIDDIURETIC #120 tablet 07/02/18 [Rx] Digoxin [Lanoxin] 0.125 mg PO DAILY #30 tablet 07/02/18 [Rx] Ferrous Sulfate 325 mg PO DAILY #30 tablet 07/02/18 [Rx] Isosorbide MONOnitrate (24 HR) [Imdur] 60 mg PO DAILY #30 tab.er.24h 07/02/18 [Rx] Allergies/Adverse Reactions: Allergy/AdvReac Type Severity Reaction Status Date / Time rivaroxaban [From Xarelto] AdvReac Severe See Verified 06/29/18 18:30 Comments Date of admission: 07/19/18 15:17 Primary care physician: Sin Purcell CNP - Constitutional Vitals: Temp Pulse Resp BP Pulse Ox 97.9 F 65 16 102/49 93 07/20/18 10:56 07/20/18 10:56 07/20/18 10:56 07/20/18 10:56 07/20/18 10:56 - Patient Status Disposition: Transfer Other Condition: Good - Discharge Instructions
[2018-07-20] MEDS ORDERED: cefTRIAXone 2,000 MG in Water for inj. (sterile) 20 ML 20 ML IVP SCH (12:00)
[2018-07-20] MEDS ORDERED: Azithromycin 500 MG in D5% in Water 250 ML IVPB SCH (12:00)
== END 2018-07-20 12:51 | disposition other institution (70) ==
LOC: EMEROOPIK 13:08 → INPPIK 13:08
PROVIDERS: ADMIT Internal Medicine; ATTEND Internal Medicine